=== PATIENT | male | born 1985 | race Two or more races ===

== ENCOUNTER 2025-03-29 11:03 | Emergency (ER) | payer MEDICAID, SELFPAY ==
--- NOTE | 2025-03-29 | XR_ITS ---
Examination: MRI brain without intravenous contrast. Date and time of exam: March 29, 2025 1410 hours INDICATIONS: Right-sided facial numbness pain behind the right ear beginning 3 days ago Technique: Multiple axial and sagittal images of the brain obtained. Siemens high-resolution 1.5 Khadijah short bore scanners utilized. Sagittal sections, T1-weighted, TR 500, TE 14, are performed. Axial sections proton-density and T2-weighted have been obtained. Inversion recovery axial images, TR 9, 260, TE 111, TI 2500. Diffusion weighted images, axial sections, TR 4800, TE 128, B value 1000 Axial sections, ADC map, TR 4800, TE 128 Findings: Enlargement of the sella turcica is not present. The optic chiasm and infundibular are not remarkable. Prepontine and interpeduncular cisterns are not enlarged. There is no localized enlargement of the medulla or devin. Fourth ventricle and cerebellar tonsils appear normal in position. No subacute area of hemorrhage density is seen. Mass in the cerebellopontine angle region is not evident. Globes symmetrical. Orbital musculature including medial lateral rectus muscles do not exhibit abnormality. Diffusion-weighted images demonstrate no focus of restricted diffusion. Increased white matter signal not seen Mass effect upon the ventricular system is not identified. Impression: Negative for acute hemorrhage mass effect or midline shift No acute infarct No MR findings diagnostic for demyelinating disease
[2025-03-29 11:16] VITALS: BP 128/74; PULSE 69; RESP 18; TEMP 36.8; O2SAT 99; BMI 26.8
--- NOTE | 2025-03-29 11:21 | XR_ITS ---
Examination: CT brain head without contrast. 2-D sagittal coronal reconstructions Date and time of exam:March 29, 2025, 1113 hours INDICATIONS: Onset right-sided facial numbness beginning 3 days ago CTDI: vol (mGy):47.9 DLP: (mGycm):1009 Technique: Multiple CT axial sections of the brain have been obtained, 5 mm slice thickness. Contrast has not been administered. 2-D sagittal, coronal reconstructions have been obtained Low dose protocols were performed. One or more of the following dose reduction techniques were used; automated exposure control, adjustment of the mA and/or KV according to patient size, use of iterative reconstruction technique. Findings: No significant ventricular enlargement. Intra-axial or extra-axial hemorrhage density is not seen. No mass effect or midline shift Basal cisterns are not remarkable. Fourth ventricle is midline. Cranial vault intact. Old appearing fracture left inferior orbital rim, coronal image 12 Impression: Negative for acute hemorrhage, mass effect or midline shift As clinically warranted, MRI MRA brain without contrast, stroke protocol, would best assess for demyelinating disease, acute ischemic change
--- NOTE | 2025-03-29 11:24 | PD.EDNEURO ---
Neuro Symptoms Deficit-RME/HPI General Chief Complaint: Neuro Symptoms/Deficit Stated Complaint: RIGHT FACIAL NUMBNESS X3 DAYS Time Seen by Provider: 03/29/25 11:14 Source: patient Arrival date/time: 03/29/25 11:03 39-year-old male with no known medical history presents to the emergency room with a chief complaint of right sided facial numbness x 3 days Mode of arrival: ambulatory Limitations: no limitations Related Data Allergies Allergy/AdvReac Type Severity Reaction Status Date / Time No Known Allergies Allergy Verified 03/29/25 11:07 ED Exam General Limitations: Present no limitations Course Orders Category Date Time Status CT head/brain wo con Stat Exams 03/29/25 11:21 Ordered CBC Stat Lab 03/29/25 11:21 Ordered CMP [Comprehensive Metabolic Panel] Stat Lab 03/29/25 11:21 Ordered Vital Signs Vital signs: Vital Signs Temperature 98.2 F 03/29/25 11:16 Pulse Rate 69 03/29/25 11:16 Respiratory Rate 18 03/29/25 11:16 Blood Pressure 128/74 03/29/25 11:16 Pulse Oximetry (%) 99 03/29/25 11:16 Oxygen Delivery Method Room Air 03/29/25 11:16 Discharge Plan Patient/Caregiver Discharge Instructions Print Language: Iranian
[2025-03-29 11:59] LABS: Basophils # (Auto) 0.1 Thou/mm3 (0.0-0.2); Basophils % (Auto) 1 % (0-2.5); Eosinophils # (Auto) 0.1 Thou/mm3 (0.0-0.5); Eosinophils % (Auto) 2 % (0-10); Hematocrit 47.8 % (41.0-53.0); Hemoglobin 15.8 g/dL (13.5-16.0); Immature Granulocytes Auto 0.02 Thou/mm3 (0.00-0.00); Lymphocytes # (Auto) 4.0 Thou/mm3 (1.0-4.8); Lymphocytes % (Auto) 50 % (10-50); Mean Corpuscular HGB Conc 33.1 g/dl (31.0-37.0); Mean Corpuscular Hemoglobin 28.9 pg (25.0-35.0); Mean Corpuscular Volume 87 fL (80-100); Monocytes # (Auto) 0.6 Thou/mm3 (0.0-0.8); Monocytes % (Auto) 8 % (0-12); Neutrophils # (Auto) 3.3 Thou/mm3 (1.8-7.7); Neutrophils % (Auto) 40 % (37-80); Nucleated Red Blood Cell # 0.00 Thou/mm3 (0.00-0.00); Nucleated Red Blood Cell % 0 /100 WBC (0); Platelet Count 329 Thou/mm3 (140-440); RDW Standard Deviation 42.1 fL (35.1-43.9); Red Blood Count 5.47 Miln/mm3 (4.50-5.90); White Blood Count 8.1 Thou/mm3 (3.8-10.6)
--- NOTE | 2025-03-29 12:07 | PD.EDRME ---
Rapid Medical Screening Exam RME Arrival date/time: 03/29/25 11:03 39-year-old male with no known medical history presents to the emergency room with a chief complaint of right sided facial numbness x 3 days I have greeted and performed a focused initial assessment of this patient. A comprehensive ED assessment and evaluation of the patient, analysis of all test results, and completion of the medical decision making process will be conducted by additional ED providers. Chief Complaint: Neuro Symptoms/Deficit Time Seen by Provider: 03/29/25 11:14 Vital signs: Vital Signs Temperature 98.2 F 03/29/25 11:16 Pulse Rate 69 03/29/25 11:16 Respiratory Rate 18 03/29/25 11:16 Blood Pressure 128/74 03/29/25 11:16 Pulse Oximetry (%) 99 03/29/25 11:16 Oxygen Delivery Method Room Air 03/29/25 11:16 Vital signs reviewed by provider: Yes
[2025-03-29 12:20] LABS: Alanine Aminotransferase 48 U/L (10-49); Albumin, Serum 4.8 gm/dL (3.5-5.0); Albumin/Globulin Ratio 2.3 (1.2-2.2); Alkaline Phosphatase 100 U/L (46-116); Anion Gap 10 (7-16); Aspartate Amino Transferase 23 U/L (0-34); BUN/Creatinine Ratio 16 Ratio (12-20); Bilirubin,Total 1.0 mg/dL (0.3-1.2); Blood Urea Nitrogen 13 mg/dL (9-23); Calcium 9.7 mg/dL (8.3-10.6); Calcium (Corrected) 9.7 mg/dL (8.5-10.1); Carbon Dioxide 28.9 mMol/L (20.0-31.0); Chloride 106 mMol/L (98-107); Creatinine (Component) 0.8 mg/dL (0.6-1.3); Estimated Creatinine Clearance 109.7 mL/min (>60); Globulin 2.1 gm/dL (2.3-3.5); Glucose 119 mg/dL (74-106); Osmolality,Calculated 289 (275-295); Potassium 3.4 mMol/L (3.4-5.1); Sodium 145 mMol/L (136-145); Total Protein 6.9 gm/dL (5.7-8.2); eGFR > 60 See Note
--- NOTE | 2025-03-29 15:06 | PD.EDNEURO ---
Neuro Symptoms Deficit-RME/HPI General Chief Complaint: Neuro Symptoms/Deficit Stated Complaint: RIGHT FACIAL NUMBNESS X3 DAYS Time Seen by Provider: 03/29/25 11:14 Arrival date/time: 03/29/25 11:03 RME / HPI RME / HPI Narrative: 39-year-old male with no known medical history presents to the emergency room with a chief complaint of right sided facial numbness x 3 days associated with facial droop, and ptosis on the right side severity of symptoms mild. Was seen by PCP, and was given unrecalled medication and came back for further evaluation. Denies any other complaints. Denies any headache. Denies any upper or lower extremity weakness. Related Data Previous Rx's ?Medication ?Instructions ?Recorded prednisone 50 mg tablet 50 mg PO QDAY #7 tabs 03/29/25 valacyclovir 1 gram tablet 1,000 mg PO TID #21 tabs 03/29/25 (Valtrex) Allergies Allergy/AdvReac Type Severity Reaction Status Date / Time No Known Allergies Allergy Verified 03/29/25 11:07 Review of Systems Review of Systems Narrative Review of Systems: Review of system reviewed and within normal limits except mentioned in HPI ED Exam Narrative Physical exam: VITAL SIGNS: Reviewed. GENERAL APPEARANCE: Alert and interactive, follows commands, no acute distress, HEAD AND FACE: Non-traumatic. ENT: PERRL, pink conjunctivitis, eyelid no trauma, Mucous membrane moist. Right-sided facial asymmetry, right-sided ptosis, forehead flattening on the right side flattening on the right side NECK: Supple, nontender, no nuchal rigidity. CHEST: No tenderness, no crepitus, no paradoxical movement, no retractions. LUNGS: Clear, well ventilated, symmetric, no rales, no wheezing, no ronchi, no stridor, good breath sounds bilaterally. HEART: Regular rate, regular rhythm, no murmur, no gallops. ABDOMEN: Soft, positive bowel sounds, nondistended, no guarding, nontender, no rebound, no masses, RECTAL: Deferred. GENITAL: Deferred. NEUROLOGICAL: Gross motor function intact sensory function intact, Appropriate for age. MUSCULOSKELETAL: low back nontender, full range of motion. EXTREMITIES: Nontender, full range of motion. SKIN: Color pink, dry, no rash, no lacerations, no abrasions, no contusions. LYMPHATICS: Deferred. Course Quality Measures none Orders Category Date Time Status MRI Screening NOW Care 03/29/25 12:[address] head/brain wo con Stat Exams 03/29/25 11:21 Completed MR head/brain wo con Stat Exams 03/29/25 Completed CBC Stat Lab 03/29/25 11:40 Completed CMP [Comprehensive Metabolic Panel] Stat Lab 03/29/25 11:40 Completed Vital Signs Vital signs: Vital Signs Temperature 98.2 F 03/29/25 11:16 Pulse Rate 69 03/29/25 11:16 Respiratory Rate 18 03/29/25 11:16 Blood Pressure 128/74 03/29/25 11:16 Pulse Oximetry (%) 99 03/29/25 11:16 Oxygen Delivery Method Room Air 03/29/25 11:16 Neuro Symptoms / Deficit MDM Narrative MDM Narrative:: 39-year-old male with no known medical history presents to the emergency room with a chief complaint of right sided facial numbness x 3 days associated with facial droop, and ptosis on the right side severity of symptoms mild. Was seen by PCP, and was given unrecalled medication and came back for further evaluation. Denies any other complaints. Denies any headache. Denies any upper or lower extremity weakness. Laboratory workup all came back unremarkable including CBC and CMP. CT scan of the head came back normal MRI of the brain also came back unremarkable. As discussed with the patient. Patient will be sent home on Valtrex and prednisone. Stable for discharge home Patient data External records reviewed:: None Clinical information provided by:: patient Social determinants that could affect healthcare access:: none Patient has the following chronic illnesses:: None How is presenting disease/condition affected by chronic disease/condition?: no chronic disease Evaluation data The following diagnostics were reviewed and interpreted by me:: lab results and radiology exam(s) Lab and/or radiology exams considered but not ordered:: None Interpretation Summary: See results MDM Medications / Prescriptions Medications or Prescriptions considered but not ordered:: None Medication administrations:: None Consultations Consultation(s) initiated? 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 Discharge instructions specifically effects, indications for sooner follow up or return to the emergency department, and the expected course of current diagnosis. Patient condition: Stable Discharge Plan Plan Patient Disposition: HOME (Self Care) Discharge Disposition comment: Stable Prescriptions/Referrals Prescriptions/Med Rec: New valacyclovir [Valtrex] 1 gram tablet 1,000 mg PO TID Qty: 21 0RF prednisone 50 mg tablet 50 mg PO QDAY Qty: 7 0RF Referrals: Camden Alexander MD [Primary Care Provider, Family Practice] - In 1 week Problem List Clinical Impression: Cohen palsy Patient/Caregiver Discharge Instructions Discharge Activity: activity as tolerated Education Materials: Cohen's Palsy Additional Instructions: Wash hair with [employer]?s baby shampoo. Use an eye patch at night to go to bed in order to protect the cornea. Natural Eye Tears - apply to affected side every hour. Use large protective glasses when going outside. Chew sugar-free gum every hour. Take medication as prescribed Follow up with your primary care doctor in a.m. Follow-up with physical therapy as instructed Print Language: Danish Stand Alone Forms: Judie Award Info., Patient Portal Info Letter PA/MARKETING PR INTERN Supervising Physician PA/EN Supervising Physician: MD Komal
== END 2025-03-29 15:11 | disposition home or self-care (01) ==
PROVIDERS: Nurse Practitioner Family; Emergency Provider Family Medicine; PCP Family Medicine
DX: G51.0 Bell's palsy (principal)
CPT/HCPCS: 36415; 70450; 70551; 80053; 85025; 99284